=== PATIENT | male | born 1985 | race Caucasian/White ===

== ENCOUNTER 2019-04-27 07:43 | Outpatient (RCR) | payer MEDICAID, SELFPAY ==
--- NOTE | 2019-04-27 14:44 | HP.FCE ---
HP OT Functional Capacity Eval Date of Evaluation: 04/27/19 - Task Lift Floor (Occasional 1-33% of Day): 35 Floor (Frequent 34-66% of Day): 20 Floor (Constant 67-100% of Day): 8 Floor PDL: Light-Medium Knee (Occasional 1-33% of Day): 30 Knee (Frequent 34-66% of Day): 20 Knee (Constant 67-100% of Day): 8 Knee PDL: Light Waist (Occasional 1-33% of Day): 30 Waist (Frequent 34-66% of Day): 20 Waist (Constant 67-100% of Day): 8 Waist PDL: Light Shoulder (Occasional 1-33% of Day): 30 Shoulder (Frequent 34-66% of Day): 20 Shoulder (Constant 67-100% of Day): 8 Shoulder PDL: Light Overhead (Occasional 1-33% of Day): 30 Overhead (Frequent 34-66% of Day): 20 Overhead (Constant 67-100% of Day): 8 Overhead PDL: Light - Work Activity/Posture Bending: Frequent Ability (34-66% of day) Squatting: Frequent Ability (34-66% of day) Kneeling: Occasional Ability (1-33% of day) Comments: 1-10 % Reaching out: Frequent Ability (34-66% of day) Reaching up: Frequent Ability (34-66% of day) Sitting: Frequent Ability (34-66% of day) Walking: Occasional Ability (1-33% of day) Standing: Occasional Ability (1-33% of day) - Reference Duration Sedentary Sedentary Light Light Light Medium Medium Medium Heavy Very Heavy Heavy Occasional (0-33% of day) Frequent (34-66% of day) Constant (67-100% of day) 10 # Negligible Negligible 15 # 8 # Negligible 20 # 10# Negli. 35 # 18 # 7 # 50 # 25 # 10 # 75 # 100 # >100 # 38 # 50 # >50 # 15 # 20 # >20 # - Patient Information Weight:: 98.43 kg Hand Dominance: R BP (Medication Use/Usual Values per pt report): No - Medical History Medical History Including Restrictions: No medical restirction given by doctor or patient. - Diagnoses Diagnoses: Past Medical History: Kain past medical history is significant for chronic low back pain, scoliosis, lumbar fusion with discectomy due to scoliosis (2001), and depression. Current: Kain is filing for disability due to inability to find job meeting his physical requirements. Medication: Tylenol- daily. Protonix. Meloxican. Celexa. Welllbrutrin - Symptoms Symptoms: Kain noted his main symptoms are pain which is constant. He noted that pain is constantly aching but has intermittent times of sharp nerve like pain all in low back and low extremities. - Pain Pain: Kain noted low back pain that is often constant aching. He noted he experiences intermittent nerve like pain with sharp and shooting pain ?after standing for too long?. He has completed physical therapy services at [facility] in [place] in 2017. He completed vocational rehabilitation program for 20 hours weekly but has not since completed finding job. He is currently not on pain management program at this time and is trying to work through insurance to [employer] one covered and set up. Mj Pain Questionnaire is a self-report pain assessment to determine a patient?s accurate psychodynamics for accurate pain rating. A score of 30 or high indicates poor psychodynamics and the greater probability of decreased accuracy with accurate pain reporting. Day 1: Pre- Mj: 44. Post Mj: 31. Discrepancies noted between pre and post Mj testing as painb decreased post acitvities. Fear Avoidance Questionnaire (FAQ) is a client self-report assessment for 18-64+ that has shown to be reliable and valid for determining increased fear with movements. A score of 96 or higher indicates increased fear avoidance behaviors. FAQ Pre-testing: -Fear avoidance belief about work (items 6,7,9,10,11,12,15): Client did not fill out. -Fear avoidance belief about physical activity (items 2,3,4,5):17. FAQ Post testin. -Fear avoidance belief about work (items 6,7,9,10,11,12,15): 31. -Fear avoidance belief about physical activity (items 2,3,4,5):18. Oswestry Neck and Low back questionnaire is a self-report assessment in which patients report their perceived level of disability based on their perceived pain. Oswestry : 29 - Work History Work History: Kain noted he has never really had a ?real job?. He has some college education but has not worked since 2009. 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 He further explained he did not finish degree as [facility] ?got rid of program? he was studying. - Behavioral Behavioral: Kain often asked for seated breaka nd mechical deficits noted with posture and walkign tasks. He noted that although that he wanted seated breaks pain was constant and unchnaging. It appears that need for seated break was due to general debility and lack of phsyial exertion activities. - ADLS ADLS: Kain lives in [facility] with 2-3 steps to enter with no handrails. He noted that there is basement he accesses on occassion. He noted that he is still completing all self- care independently. He does not work due to condition and does not drive which is baseline. He cares for dog and completes meal prep, grocery shopping, and does a little lawncare such as mowing with short intervals. - Physical Examination Physical Examination: The purpose of this functional capacity evaluation (FCE) was to determine Kain?s physical ability. 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 Aerobic limiting factor: 85% of max adjust HR= (220-age) *.85= 156.4 bpm. Calculated max weight: 60% of weight= 130.2 lbs. Begining Diagnostics: heart rate: 67 bpm. oxygen at room saturation: 96%. blood pressure: 122/ 90 mmHg with Omron wrist cuff ROM: Range of Motion: Lumbar Spine with goniometer: -Flexion: 14-78. -Extension: 14-0- able to get lumbar spine to neutral. -Lateral Flexion: R 0-11 , L 0-13 Strength: Strength measurements completed with use of manual muscle testing and short arm access of dynamometer. Results are as follows: Upper Body: Shoulder flexion: -Dynamometer: R 15.9 , L 16.0. Shoulder extension: -Dynamometer: R 23.6 , L 18.0 lbs. Shoulder abduction: -Dynamometer: R 9.2 , L 13.2 lbs. Shoulder adduction: -Dynamometer: R 17.8 , L 14. 2 lbs. Elbow flexion: -Dynamometer: R 15.9 , L 18.9 lbs. Elbow extension: -Dynamometer: R 24.6 , L 19.4 lbs. Completed with use of dyanmometer at distal end points. Lower Body: Hip flexion: -Dynamometer: R 24.6 , L 23.0. Hip adduction: -Dynamometer: R 25.9 , L 15.6. Hip abduction: -Dynamometer: R 17.0 , L 23.0. Knee Flexion: -Dynamometer: R 23.6 , L 31.2. Knee extension: -Dynamometer: R 32.4 , L 30.1. Plantarflexion: -Dynamometer: R 5/5 , L 5/5. Dorsiflexion: -Dynamometer: R 30.4 , L 30. 3 Right Financial Compliance Manager Strength Average: 67.33 Left Financial Compliance Manager Strength Average: 80.00 Right Lateral Pinch Average: 23.00 Right Lateral Pinch Percentile: about 75th Left Lateral Pinch Average: 22.00 Left Lateral Pinch Percentile: 75th Right Tripod Pinch Average: 20.66 Right Tripod Pinch Percentile: 50th Left Tripod Pinch Average: 24.00 Left Tripod Pinch Percentile: 90th Comments: Five Span Financial Compliance Manager testing on Dynamometer: Position 1: R 40 , L 51. Position 2: R 74 , L 91. Position 3: R 64 , L 76. Position 4: R 48 , L 74. Position 5: R 41 , L 61. A coefficient of variation greater than 15 % indicated decreased consistency of effort. Coefficient of variation: Consistency of Effort: Sensation: Sensation testing completed on bilateral feet with monofilament touch test. A score of normal on touch test is 2.83 and within normal range with just some discrepancies for light touch is between 3.22-3.61. The higher the number in more complications related to patient?s ability to perceive touch related sensory stimuli. R hand: Thumb 2.83 ,2nd 2.83 , 3rd 2.83 , 4th 2.83 , 5th 2.83. L hand: Thumb 2.83 ,2nd 2.83 , 3rd 2.83 , 4th 2.83 , 5th 2.83. Bilateral feet: R Great toe 5.38 , 2nd 3.84 ,3rd 3.84 ,4th 3.84 ,5th 3.84. L Great toe 4.17 , 2nd 3.84 ,3rd 3.84 ,4th 3.84 ,5th 3.61. ABle to complete tailor sit to complete howard nd doffing of socks. Slides shoes off. Bottom of feet un kept, decreased skin integrity with increased flakiness, and some blck spots. Denies being diabetic. Fine Motor: Completed the Purdue Pegboard test to further determine the patient?s ability to complete 2-3 step tasks, assess fine motor control and general dexterity needed to complete assembly like work. The results are as follows: Right Hand: 11. -Percentile: 3rd. stood less than 3 minutes. Therapist left to get more equipment and when returning to room after he was to be practicing he was seated for less than 30 seconds for time therpaist had left room. Left Hand: 10. -Percentile: 3rd. Both Hands: 9. -Percentile: 6th. R+ L+ Both: 30. -percentile: below 2nd. Assembly: 6. -percentile:below 1st. Increased forward flexion of trunk during standing tasks. Table set at 33.5 inches from floor to top of table height. Compensations and mechical defiticts of increased leaning on table noted. Balance: Functional reach test is used to determine static balance in patients. A score of 15 is normal and less than 10 increases risk of falling. A score of 6 or less significantly increases a patient?s risk of falling. [place] 1: 17. [place] 2: 17.5. [place] 3: 17. Average: 17. Functional Gait Assessment (FGA) is a dynamic balance test to determine vestibular functioning and general dynamic balance ability of patient 18-65+. This assessment can be used with clients of various backgrounds to determine functional dynamic balance needed to complete every day work related tasks. 1.Gait Level Surface:1. 2.Change in Gait Speed: 3. 3.Gait with horizontal head turns:2. 4.Gait with vertical head turns:2. 5.Gait and pivot turn:3. 6.Step over obstacle:1. 7.Gait with narrow base of support: 1. 8.Gait with eyes closed: 2. 9.Ambulating Backwards: 2. 10.Steps: 3. Total Score: 20/maximum score 30 - Non Material Handling Activities Bending: Heart rate prior to beginning with use of pulse oximeter: 98 bpm. 3x, 10x in 34 seconds, and 10x faster in 24 seconds. Completed with fair body mechanics. He exhibits mechanical deficits of increased trunk flexion which is baseline due to past lumbar surgery for scoliosis. Kain completed full bend from waist to upright. He is able to complete task with equal weightbearing throughout bilateral lower extremities. Increased request of need of seated break; able to stand with encouragement. Increase in heart observed to be due to exertion as not signs discomfort such as wincing observed. General debility noted. Heart rate posttest with use of pulse oximeter: 115. Perceived pain: 5/10 Squatting: Heart rate prior to beginning with use of pulse oximeter: 92 bpm. 3x, 10x in 19 seconds, and 10x faster in 15 seconds. Kain completed task with fair body mechanics. Increase in forward flexion observed with task at level greater than baseline He exhibit ability to complete full squat with equal weightbearing into bilateral lower extremity. He exhibits mechanical deficits of forward flexion at lumbar spine which is baseline from past scoliosis surgery. Need 3 minutes seated break at end of task. Heart rate posttest with use of pulse oximeter: 117 bpm. Perceived pain: 5/10- pain consistent. Kneeling: Heart rate prior to beginning with use of pulse oximeter: 105 bpm. 3x, 10x in 27 seconds. Completed with poor body mechanics with right lower extremity in front. Decrease in heart rate observed which is inconsistent with reports of difficulty and pain. Exhibited ability to complete only 25% of full kneel with increased shakiness and weakness noted. He exhibits mechanical deficits of forward flexion at lumbar spine which is baseline from past scoliosis surgery. General discrepancies noted between performance and heart rate. Heart rate posttest with use of pulse oximeter: 79 bpm. Perceived pain: 4-5/10 Reaching out/up: Tasks completed from standing position without break between sets. Reaching out: Heart rate prior to beginning with use of pulse oximeter: 106 bpm. 3x, 10x in 12 seconds, and 10x faster in 7 seconds. Exhibits fair mechanics with increased cervical extension and full range of motion of bilateral upper extremities. He exhibits mechanical deficits of forward flexion at lumbar spine which is baseline from past scoliosis surgery. No increase in heart rate observed to support his requests for seated break and asked to continue to stand with therapist direction. Heart rate posttest with use of pulse oximeter: 107. Perceived pain: 5/10. Reaching up: Heart rate prior to beginning with use of pulse oximeter: 107 bpm. 3x, 10x in 13 seconds, and 10x faster in 8 seconds. Exhibits fair mechanics with increased cervical extension and full range of motion of bilateral upper extremities. He exhibits mechanical deficits of forward flexion at lumbar spine which is baseline from past scoliosis surgery. No increase in heart rate observed to support his requests for seated break and asked to continue to stand with therapist direction. Heart rate posttest with use of pulse oximeter: 111. Perceived pain:5/10. Took four minutes seated break post task. Prior to completing walk. Discrepancies noted with need for seated break and heart rate for task performance. Inconsistent effort with need for consistent breaks. Walking: Heart rate prior to beginning with use of pulse oximeter: 87 bpm. Completed 6 minutes of walking with increased mechanical deficits and changes as task progressed. He exhibits mechanical deficits of forward flexion at lumbar spine which is baseline from past scoliosis surgery. He completed 6 minutes of consistent ambulation prior to needing seated break. Break provided as increased antalgic gait with increased forward flexion noted and two standing breaks requested. During standing breaks, he often completed forward flexion with increased gowlers sign observed as task progressed. Needed seated break at completion of 6 minutes with completing two laps or 680 feet. He was also able to walk into and out of facility with is additionally another 800 feet. Heart rate posttest with use of pulse oximeter: 116 bpm. Perceived pain:4-5/10 Standing: Completed standing increments with need for verbal encouragement. He exhibits mechanical deficits of forward flexion at lumbar spine which is baseline from past scoliosis surgery.Mechanical changes and compensations noted during standing tasks lasting for 5-7 minutes and occurring four times during session. Requested breaks after 2 minutes of standing consistently but able to walk in and back to OT area without issue that tasks at least if not longer than 3 minutes to walk in from and back out to parking lot. Sitting: Kain can complete sitting for 40 minutes during session. He appears to complete many sedentary activities as he was observed to be fair comfortable and often requested this position. Minimal weightshifts observed as task progressed. Appears to have increased debility type symptoms when completing physical exertion. Additionally, He exhibits mechanical deficits of forward flexion at lumbar spine which is baseline from past scoliosis surgery. Climbing Stairs: Heart rate prior to beginning with use of pulse oximeter: 94 bpm. Kain completed ascending and descending of 10 stairs with good body mechanics and no use of handrail. He completed stairs with reciprocal foot pattern. Heart rate posttest with use of pulse oximeter: 108 bpm. Perceived pain:4-5/10 - Dynamic Occasional Lifting Capacity Floor Lift: Heart rate prior to beginning with use of pulse oximeter: 91 bpm. Max weight: 40 lbs. Occasional Liftinx 35 lbs. Frequent liftinx 20 lbs. Kain exhibits fair body mechanics. He exhibits mechanical deficits of forward flexion at lumbar spine which is baseline from past scoliosis surgery. He is able to complete tasks from forward flexion position to upright position when cues.Good weight distribution with equal weightbearing to bilateral upper and lower extremities. Increase in heart rate due to exertion as noted pain consistent and not increasing. Heart rate posttest with use of pulse oximeter: 124. Perceived pain: 4-5/10 noted not increased with tasks. Knee Lift: Heart rate prior to beginning with use of pulse oximeter: 102 bpm. Max weight: 40 lbs. Occasional Liftinx 30 lbs. Frequent liftinx 20 lbs. Completed with fair body mechanics. Need for 3 minutes seated break as increased shortness of breath observed and increased compensations as tasks progressed. Completed with equal weightbearing into bilateral upper and lower extremities. Increased mechanical deficits of increased forward trunk flexion in which compensations observed but this is baseline. Good weight distribution with equal weightbearing to bilateral upper and lower extremities. He is able when cued to move from flexed to upright position. Increase in heart rate due to exertion as noted pain consistent and not increasing. Effort consistent. Heart rate posttest with use of pulse oximeter: 121. Perceived pain: 4-5/10 noted not increased with tasks. Waist Lift: Heart rate prior to beginning with use of pulse oximeter: 86 bpm. Max weight: 1x 45 lbs. Occasional Liftinx 30 lbs. Frequent liftinx 20 lbs. Completed with fair body mechanics. He exhibits mechanical deficits of forward flexion at lumbar spine which is baseline from past scoliosis surgery. Increased mechanical compensations noted with increased leaning on boxes when finishing with lift.Good weight distribution with equal weightbearing to bilateral upper and lower extremities. Completed equal weightbearing into bilateral upper and lower extremities. Increased cervical flexion observed. No pain behaviors observed; Effort appears consistent. Increase in heart rate due to exertion as increased shortness of breath and perspiration observed but noted pain perception consistent and not increasing. Heart rate posttest with use of pulse oximeter: 129. Perceived pain:4-5/10 Shoulder Lift: Heart rate prior to beginning with use of pulse oximeter: 100. Max weight: 35 lbs. Occasional Liftinx 30 lbs. Frequent liftinx 20 lbs. Fair body mechanics observed. Better upright posture observed at lift to higher location.Good weight distribution with equal weightbearing to bilateral upper and lower extremities. He exhibits mechanical deficits of forward flexion at lumbar spine which is baseline from past scoliosis surgery. Increase in heart rate due to exertion as increased shortness of breath and perspiration observed but noted pain perception consistent and not increasing. No pain behaviors observed; effort appears consistent but fatiguing. Heart rate posttest with use of pulse oximeter: 108 bpm. Perceived pain:4-5/10 Overhead Lift: Heart rate prior to beginning with use of pulse oximeter: 101. Max weight: 35 lbs. Occasional Liftinx 30 lbs. Frequent liftinx 20 lbs. Completed with fair body mechanics. He exhibits mechanical deficits of forward flexion at lumbar spine which is baseline from past scoliosis surgery. Good weight distribution with equal weightbearing to bilateral upper and lower extremities. No pain behaviors observed. Increase in heart rate due to exertion as increased shortness of breath and perspiration observed but noted pain perception consistent and not increasing. Needed three-minute seated break due to debility and fatiguing with exertion exercises. Heart rate posttest with use of pulse oximeter: 111 bpm. Perceived pain: 4-5/10 Carrying: Heart rate prior to beginning with use of pulse oximeter: 90 bpm. Occasional Liftinx 20 lbs. Frequent liftinx 10 lbs. Completed with fair body mechanical. Increased upright posture observed from forwardly flexed baseline position. Fair weight distribution with unequal weightbearing to bilateral upper extremities with increased load to right upper extremity. He exhibits good load distribution to bilateral lower extremities. No pain behaviors observed. Increase in heart rate due to exertion as increased shortness of breath and perspiration observed but noted pain perception consistent and not increasing. Heart rate posttest with use of pulse oximeter: 124 bpms. Perceived pain:4-5/10 Comments: Completed tasks with pain conssitent at 4-5/10. He was visibly fatigued as often does not completed phsyical exertion based tasks. He is working on getting on a pain management program and has had difficulty finding job that meets his physical needs. Ending Diagnostics: Heart Rate: 88 bpm. oxygen saturation at room temperature: 94 %. Blood pressure: 132/80 mmHg
--- NOTE | 2019-04-27 14:45 | HP.OTFCE.D ---
FCE D/C Summary - Discharge RASHMI COTTRELL was seen for a one time visit for an FCE on 04/27/19 and is discharged.
--- NOTE | 2019-05-02 12:52 | HP.OTFCE_ITS ---
HP OT Functional Capacity Eval Date of Evaluation: 04/27/19 - Task Lift Floor (Occasional 1-33% of Day): 35 Floor (Frequent 34-66% of Day): 20 Floor (Constant 67-100% of Day): 8 Floor PDL: Light-Medium Knee (Occasional 1-33% of Day): 30 Knee (Frequent 34-66% of Day): 20 Knee (Constant 67-100% of Day): 8 Knee PDL: Light Waist (Occasional 1-33% of Day): 30 Waist (Frequent 34-66% of Day): 20 Waist (Constant 67-100% of Day): 8 Waist PDL: Light Shoulder (Occasional 1-33% of Day): 30 Shoulder (Frequent 34-66% of Day): 20 Shoulder (Constant 67-100% of Day): 8 Shoulder PDL: Light Overhead (Occasional 1-33% of Day): 30 Overhead (Frequent 34-66% of Day): 20 Overhead (Constant 67-100% of Day): 8 Overhead PDL: Light Comments: Based on spinal integrity he can complete light work and would benefit from work that often requires him to sit to in order to complete. Would recommend avoiding frequent lifting based on spinal alignment and integrity concerns. - Work Activity/Posture Bending: Frequent Ability (34-66% of day) Squatting: Frequent Ability (34-66% of day) Kneeling: Occasional Ability (1-33% of day) Comments: 1-10 % Reaching out: Frequent Ability (34-66% of day) Reaching up: Frequent Ability (34-66% of day) Sitting: Frequent Ability (34-66% of day) Walking: Occasional Ability (1-33% of day) Standing: Occasional Ability (1-33% of day) - Reference Duration Sedentary Sedentary Light Light Light Medium Medium Medium Heavy Very Heavy Heavy Occasional (0-33% of day) Frequent (34-66% of day) Constant (67-100% of day) 10 # Negligible Negligible 15 # 8 # Negligible 20 # 10# Negli. 35 # 18 # 7 # 50 # 25 # 10 # 75 # 100 # >100 # 38 # 50 # >50 # 15 # 20 # >20 # - Patient Information Weight:: 98.43 kg Hand Dominance: R BP (Medication Use/Usual Values per pt report): No - Medical History Medical History Including Restrictions: No medical restirction given by doctor or patient. - Diagnoses Diagnoses: Past Medical History: Kain past medical history is significant for chronic low back pain, scoliosis, lumbar fusion with discectomy due to scoliosis (2001), and depression. Current: Kain is filing for disability due to inability to find job meeting his physical requirements. Medication: Tylenol- daily. Protonix. Meloxican. Celexa. Welllbrutrin - Symptoms Symptoms: Kain noted his main symptoms are pain which is constant. He noted that pain is constantly aching but has intermittent times of sharp nerve like pain all in low back and low extremities. - Pain Pain: Kain noted low back pain that is often constant aching. He noted he experiences intermittent nerve like pain with sharp and shooting pain ?after standing for too long?. He has completed physical therapy services at [facility] in [place] in 2017. He completed vocational rehabilitation program for 20 hours weekly but has not since completed finding job. He is currently not on pain management program at this time and is trying to work through insurance to [employer] one covered and set up. Mj Pain Questionnaire is a self-report pain assessment to determine a patient?s accurate psychodynamics for accurate pain rating. A score of 30 or high indicates poor psychodynamics and the greater probability of decreased accuracy with accurate pain reporting. Day 1: Pre- Mj: 44. Post Mj: 31. Discrepancies noted between pre and post Mj testing as painb decreased post acitvities. Fear Avoidance Questionnaire (FAQ) is a client self-report assessment for 18-64+ that has shown to be reliable and valid for determining increased fear with movements. A score of 96 or higher indicates increased fear avoidance behaviors. FAQ Pre-testing: -Fear avoidance belief about work (items 6,7,9,10,11,12,15): Client did not fill out. -Fear avoidance belief about physical activity (items 2,3,4,5):17. FAQ Post testin. -Fear avoidance belief about work (items 6,7,9,10,11,12,15): 31. -Fear avoidance belief about physical activity (items 2,3,4,5):18. Oswestry Neck and Low back questionnaire is a self-report assessment in which patients report their perceived level of disability based on their perceived pain. Oswestry : 29 - Work History Work History: Kain noted he has never really had a ?real job?. He has some college education but has not worked since 2009. 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 He further explained he did not finish degree as [employer] [facility] ?got rid of program? he was studying. - Behavioral Behavioral: Kain often asked for seated breaka nd mechical deficits noted with posture and walkign tasks. He noted that although that he wanted seated breaks pain was constant and unchnaging. It appears that need for seated break was due to general debility and lack of phsyial exertion activities. - ADLS ADLS: Kain lives in [facility] with 2-3 steps to enter with no handrails. He noted that there is basement he accesses on occassion. He noted that he is still completing all self- care independently. He does not work due to condition and does not drive which is baseline. He cares for dog and completes meal prep, grocery shopping, and does a little lawncare such as mowing with short intervals. - Physical Examination Physical Examination: The purpose of this functional capacity evaluation (FCE) was to determine Kain?s physical ability. This FCE was performed in order to forge helper in the determination of his physical ability. Aerobic limiting factor: 85% of max adjust HR= (220-age) *.85= 156.4 bpm. Calculated max weight: 60% of weight= 130.2 lbs. Begining Diagnostics: heart rate: 67 bpm. oxygen at room saturation: 96%. blood pressure: 122/ 90 mmHg with Omron wrist cuff ROM: Range of Motion: Lumbar Spine with goniometer: -Flexion: 14-78. - Extension: 14-0- able to get lumbar spine to neutral. -Lateral Flexion: R 0-11 , L 0-13 Strength: Strength measurements completed with use of manual muscle testing and short arm access of dynamometer. Results are as follows: Upper Body: Shoulder flexion: -Dynamometer: R 15.9 , L 16.0. Shoulder extension: -Dynamometer: R 23.6 , L 18.0 lbs. Shoulder abduction: -Dynamometer: R 9.2 , L 13.2 lbs. Shoulder adduction: -Dynamometer: R 17.8 , L 14. 2 lbs. Elbow flexion: - Dynamometer: R 15.9 , L 18.9 lbs. Elbow extension: -Dynamometer: R 24.6 , L 19.4 lbs. Completed with use of dyanmometer at distal end points. Lower Body: Hip flexion: -Dynamometer: R 24.6 , L 23.0. Hip adduction: - Dynamometer: R 25.9 , L 15.6. Hip abduction: -Dynamometer: R 17.0 , L 23.0. Knee Flexion: -Dynamometer: R 23.6 , L 31.2. Knee extension: - Dynamometer: R 32.4 , L 30.1. Plantarflexion: -Dynamometer: R 5/5 , L 5/5. Dorsiflexion: -Dynamometer: R 30.4 , L 30. 3. Rotator cuff exhibits good integrity. Right Paper Making Machine Operator Strength Average: 67.33 Right Paper Making Machine Operator Strength Percentile: 127 Left Paper Making Machine Operator Strength Average: 80.00 Left Paper Making Machine Operator Strength Percentile: 125 Right Lateral Pinch Average: 23.00 Right Lateral Pinch Percentile: about 75th Left Lateral Pinch Average: 22.00 Left Lateral Pinch Percentile: 75th Right Tripod Pinch Average: 20.66 Right Tripod Pinch Percentile: 50th Left Tripod Pinch Average: 24.00 Left Tripod Pinch Percentile: 90th Comments: Five Span Paper Making Machine Operator testing on Dynamometer: Position 1: R 40 , L 51. Position 2: R 74 , L 91. Position 3: R 64 , L 76. Position 4: R 48 , L 74. Position 5: R 41 , L 61. A coefficient of variation greater than 15 % indicated decreased consistency of effort. Coefficient of variation: R. 28= 28%, L .216= 22%. Consistency of Effort: inconsisent Sensation: Sensation testing completed on bilateral feet with monofilament touch test. A score of normal on touch test is 2.83 and within normal range with just some discrepancies for light touch is between 3.22-3.61. The higher the number in more complications related to patient?s ability to perceive touch related sensory stimuli. R hand: Thumb 2.83 ,2nd 2.83 , 3rd 2.83 , 4th 2.83 , 5th 2.83. L hand: Thumb 2.83 ,2nd 2.83 , 3rd 2.83 , 4th 2.83 , 5th 2.83. Bilateral feet: R Great toe 5.38 , 2nd 3.84 ,3rd 3.84 ,4th 3.84 ,5th 3.84. L Great toe 4.17 , 2nd 3.84 ,3rd 3.84 ,4th 3.84 ,5th 3.61. Able to complete tailor sit to complete don and doffing of socks. Slides shoes off. Bottom of feet un kept, decreased skin integrity with increased flakiness, and some black spots around metatarsal pad. Denies being diabetic. Fine Motor: Completed the P[employer]ue Pegboard test to further determine the patient?s ability to complete 2-3 step tasks, assess fine motor control and general dexterity needed to complete assembly like work. The results are as follows: Right Hand: 11. -Percentile: 3rd. stood less than 3 minutes. Therapist left to get more equipment and when returning to room after he was to be practicing he was seated for less than 30 seconds for time therpaist had left room. Left Hand: 10. -Percentile: 3rd. Both Hands: 9. -Percentile: 6th. R+ L+ Both: 30. -percentile: below 2nd. Assembly: 6. -percentile:below 1st. Increased forward flexion of trunk during standing tasks. Table set at 33.5 inches from floor to top of table height. Compensations and mechical defiticts of increased leaning on table noted. Balance: Functional reach test is used to determine static balance in patients. A score of 15 is normal and less than 10 increases risk of falling. A score of 6 or less significantly increases a patient?s risk of falling. Beatty 1: 17. Beatty 2: 17.5. Beatty 3: 17. Average: 17. Good static balance based on functional reach test. Functional Gait Assessment (FGA) is a dynamic balance test to determine vestibular functioning and general dynamic balance ability of patient 18-65+. This assessment can be used with clients of various backgrounds to determine functional dynamic balance needed to complete every day work related tasks. 1.Gait Level Surface:1. 2.Change in Gait Speed: 3. 3.Gait with horizontal head turns:2. 4.Gait with vertical head turns:2. 5.Gait and pivot turn:3. 6.Step over obstacle:1. 7.Gait with narrow base of support: 1. 8.Gait with eyes closed: 2. 9.Ambulating Backwards: 2. 10.Steps: 3. Total Score: 2 0/maximum score 30. Below average performance for 40-49 y/o for group ahead as well as below two standard deviations of typical performance. - Non Material Handling Activities Bending: Heart rate prior to beginning with use of pulse oximeter: 98 bpm. 3x, 10x in 34 seconds, and 10x faster in 24 seconds. Completed with fair body mechanics. He exhibits mechanical deficits of increased trunk flexion which is baseline due to past lumbar surgery for scoliosis. Kain completed full bend from waist to upright. He is able to complete task with equal weightbearing throughout bilateral lower extremities. Increased request of need of seated break; able to stand with encouragement. Increase in heart observed to be due to exertion as not signs discomfort such as wincing observed. General debility noted. Heart rate posttest with use of pulse oximeter: 115. Perceived pain: 5/10 Squatting: Heart rate prior to beginning with use of pulse oximeter: 92 bpm. 3x, 10x in 19 seconds, and 10x faster in 15 seconds. Kian completed task with fair body mechanics. Increase in forward flexion observed with task at level greater than baseline He exhibit ability to complete full squat with equal weightbearing into bilateral lower extremity. He exhibits mechanical deficits of forward flexion at lumbar spine which is baseline from past scoliosis surgery. Need 3 minutes seated break at end of task. Heart rate posttest with use of pulse oximeter: 117 bpm. Perceived pain: 5/10- pain consistent. Kneeling: Heart rate prior to beginning with use of pulse oximeter: 105 bpm. 3x, 10x in 27 seconds. Completed with poor body mechanics with right lower extremity in front. Decrease in heart rate observed which is inconsistent with reports of difficulty and pain. Exhibited ability to complete only 25% of full kneel with increased shakiness and weakness noted. He exhibits mechanical deficits of forward flexion at lumbar spine which is baseline from past scoliosis surgery. General discrepancies noted between performance and heart rate. Heart rate posttest with use of pulse oximeter: 79 bpm. Perceived pain: 4-5/10 Reaching out/up: Tasks completed from standing position without break between sets. Reaching out: Heart rate prior to beginning with use of pulse oximeter: 106 bpm. 3x, 10x in 12 seconds, and 10x faster in 7 seconds. Exhibits fair mechanics with increased cervical extension and full range of motion of bilateral upper extremities. He exhibits mechanical deficits of forward flexion at lumbar spine which is baseline from past scoliosis surgery. No increase in heart rate observed to support his requests for seated break and asked to continue to stand with therapist direction. Heart rate posttest with use of pulse oximeter: 107. Perceived pain: 5/10. Reaching up: Heart rate prior to beginning with use of pulse oximeter: 107 bpm. 3x, 10x in 13 seconds, and 10x faster in 8 seconds. Exhibits fair mechanics with increased cervical extension and full range of motion of bilateral upper extremities. He exhibits mechanical deficits of forward flexion at lumbar spine which is baseline from past scoliosis surgery. No increase in heart rate observed to support his requests for seated break and asked to continue to stand with therapist direction. Heart rate posttest with use of pulse oximeter: 111. Perceived pain:5/10. Took four minutes seated break post task. Prior to completing walk. Discrepancies noted with need for seated break and heart rate for task performance. Inconsistent effort with need for consistent breaks. Walking: Heart rate prior to beginning with use of pulse oximeter: 87 bpm. Completed 6 minutes of walking with increased mechanical deficits and changes as task progressed. He exhibits mechanical deficits of forward flexion at lumbar spine which is baseline from past scoliosis surgery. He completed 6 minutes of consistent ambulation prior to needing seated break. Break provided as increased antalgic gait with increased forward flexion noted and two standing breaks requested. During standing breaks, he often completed forward flexion with increased gowlers sign observed as task progressed. Needed seated break at completion of 6 minutes with completing two laps or 680 feet. He was also able to walk into and out of facility with is additionally another 800 feet. Heart rate posttest with use of pulse oximeter: 116 bpm. Perceived pain:4-5/10 Standing: Completed standing increments with need for verbal encouragement from therapist. He exhibits mechanical deficits of forward flexion at lumbar spine which is baseline from past scoliosis surgery. Mechanical changes and compensations noted during standing tasks lasting for 5-7 minutes and occurring four times during session. Requested breaks after 2 minutes of standing consistently but able to walk in and back to OT area without issue that tasks at least if not longer than 3 minutes to walk in from and back out to parking lot. Sitting: Kain can complete sitting for 40 minutes during session. He appears to complete many sedentary activities as he was observed to be fair comfortable and often requested this position. Minimal weight shifts observed as task progressed. Appears to have increased debility type symptoms when completing physical exertion. Additionally, He exhibits mechanical deficits of forward flexion at lumbar spine which is baseline from past scoliosis surgery. Climbing Stairs: Heart rate prior to beginning with use of pulse oximeter: 94 bpm. Kain completed ascending and descending of 10 stairs with good body mechanics and no use of handrail. He completed stairs with reciprocal foot pattern. Heart rate posttest with use of pulse oximeter: 108 bpm. Perceived pain:4-5/10 - Dynamic Occasional Lifting Capacity Floor Lift: Heart rate prior to beginning with use of pulse oximeter: 91 bpm. Max weight: 40 lbs. Occasional Liftinx 35 lbs. Frequent liftinx 20 lbs. Kain exhibits fair body mechanics. He exhibits mechanical deficits of forward flexion at lumbar spine which is baseline from past scoliosis surgery. He is able to complete tasks from forward flexion position to upright position when cues. Good weight distribution with equal weightbearing to bilateral upper and lower extremities. Increase in heart rate due to exertion as noted pain consistent and not increasing. Heart rate posttest with use of pulse oximeter: 124. Perceived pain: 4-5/10 noted not increased with tasks. Knee Lift: Heart rate prior to beginning with use of pulse oximeter: 102 bpm. Max weight: 40 lbs. Occasional Liftinx 30 lbs. Frequent liftinx 20 lbs. Completed with fair body mechanics. Need for 3 minutes seated break as increased shortness of breath observed and increased compensations as tasks progressed. Completed with equal weightbearing into bilateral upper and lower extremities. Increased mechanical deficits of increased forward trunk flexion in which compensations observed but this is baseline. Good weight distribution with equal weightbearing to bilateral upper and lower extremities. He is able when cued to move from flexed to upright position. Increase in heart rate due to exertion as noted pain consistent and not increasing. Effort consistent. Heart rate posttest with use of pulse oximeter: 121. Perceived pain: 4-5/10 noted not increased with tasks. Waist Lift: Heart rate prior to beginning with use of pulse oximeter: 86 bpm. Max weight: 1x 45 lbs. Occasional Liftinx 30 lbs. Frequent liftinx 20 lbs. Completed with fair body mechanics. He exhibits mechanical deficits of forward flexion at lumbar spine which is baseline from past scoliosis surgery. Increased mechanical compensations noted with increased leaning on boxes when finishing with lift.Good weight distribution with equal weightbearing to bilateral upper and lower extremities. Completed equal weig htbearing into bilateral upper and lower extremities. Increased cervical flexion observed. No pain behaviors observed; Effort appears consistent. Increase in heart rate due to exertion as increased shortness of breath and perspiration observed but noted pain perception consistent and not increasing. Heart rate posttest with use of pulse oximeter: 129. Perceived pain:4-5/10 Shoulder Lift: Heart rate prior to beginning with use of pulse oximeter: 100. Max weight: 35 lbs. Occasional Liftinx 30 lbs. Frequent liftinx 20 lbs. Fair body mechanics observed. Better upright posture observed at lift to higher location.Good weight distribution with equal weightbearing to bilateral upper and lower extremities. He exhibits mechanical deficits of forward flexion at lumbar spine which is baseline from past scoliosis surgery. Increase in heart rate due to exertion as increased shortness of breath and perspiration observed but noted pain perception consistent and not increasing. No pain behaviors observed; effort appears consistent but fatiguing. Heart rate posttest with use of pulse oximeter: 108 bpm. Perceived pain:4-5/10 Overhead Lift: Heart rate prior to beginning with use of pulse oximeter: 101. Max weight: 35 lbs. Occasional Liftinx 30 lbs. Frequent liftinx 20 lbs. Completed with fair body mechanics. He exhibits mechanical deficits of forward flexion at lumbar spine which is baseline from past scoliosis surgery. Good weight distribution with equal weightbearing to bilateral upper and lower extremities. No pain behaviors observed. Increase in heart rate due to exertion as increased shortness of breath and perspiration observed but noted pain perception consistent and not increasing. Needed three-minute seated break due to debility and fatiguing with exertion exercises. Heart rate posttest with use of pulse oximeter: 111 bpm. Perceived pain: 4-5/10 Carrying: Heart rate prior to beginning with use of pulse oximeter: 90 bpm. Occasional Liftinx 20 lbs. Frequent liftinx 10 lbs. Completed with fair body mechanical. Increased upright posture observed from forwardly flexed baseline position. Fair weight distribution with unequal weightbearing to bilateral upper extremities with increased load to right upper extremity. He exhibits good load distribution to bilateral lower extremities. No pain behaviors observed. Increase in heart rate due to exertion as increased shortness of breath and perspiration observed but noted pain perception consistent and not increasing. Heart rate posttest with use of pulse oximeter: 124 bpms. Perceived pain:4-5/10 Comments: Completed tasks with pain consistent at 4-5/10. He was visibly fatigued as often does not complete physical exertion-based tasks. He is working on getting on a pain management program and has had difficulty finding job that meets his physical needs. Pain is consistent and unchanging with physical exertion. Would not recommend job with repetitive lifting due to spinal complications but pain consistent with all tasks as report by Kain. Unclear if he completed vocational rehabilitation or went for a couple weeks. Ending Diagnostics: Heart Rate: 88 bpm. oxygen saturation at room temperature: 94 %. Blood pressure: 132/80 mmHg
== END 2019-04-27 19:00 | disposition home or self-care (01) ==
LOC: OT 07:43
PROVIDERS: Family Provider Family Medicine; PCP Family Medicine; Referring Provider Family Medicine; Visit Provider Family Medicine
DX: M54.9 Dorsalgia, unspecified (principal); M41.9 Scoliosis, unspecified
CPT/HCPCS: 97750